=== PATIENT | female | born 1960 | race Caucasian/White ===

== ENCOUNTER 2019-01-12 07:38 | Outpatient (CLI) | payer OTHER ==
[2019-01-12 08:25] LABS: eGFR (Non-African) > 60
[2019-01-12 08:27] LABS: SEGMENTED NEUTROPHILS % 58 % (39-79)
[2019-01-12 08:28] LABS: BASOPHILS % 2 % (0-2); EOSINOPHILS % 2 % (0-7); MONOCYTES % 4 % (0-11); OVALOCYTES 1+ (NEGATIVE)
== END 2019-01-12 07:40 ==
LOC: LAB 07:38
PROVIDERS: ATTEND Family Medicine
DX: Z00.00 Encounter for general adult medical examination without abnormal findings (principal); Z79.899 Other long term (current) drug therapy; Z13.0 Encounter for screening for diseases of the blood and blood-forming organs and certain disorders involving the immune mechanism; Z13.29 Encounter for screening for other suspected endocrine disorder; Z13.220 Encounter for screening for lipoid disorders
CPT/HCPCS: 36415; 80053; 80061; 84443; 85025